=== PATIENT | female | born 1960 | race African-American/Black ===

== ENCOUNTER 2017-01-24 21:28 | Emergency (ER) | payer OTHER ==
[~2017-01-24] VITALS: Ht 162.6 cm; Wt 95.5 kg
[~2017-01-24 21:28] MED LIST: ALBU8.5H3 INH; ASPI-664 PO; ATOR20TA65 PO; AZIT250T6 PO; DOCU-144 PO; FAMO40TA52 PO; GABA100C14 PO; HYDR-3671 PO; INSU100I27 SQ; LINA5TAB PO; METF850T PO; METO-448 GTB; NOVO3I SC; OLAN2.5T4 PO; SENN-53 PO; SILD20TA PO; SPIR25TA PO
[2017-01-24 21:41] VITALS: Ht 162.6 cm; Wt 95.5 kg
--- NOTE | 2017-01-24 22:45 | ERD ---
ER Documentation Chief Complaint Date/Time DATE: 01/24/17 TIME: 22:37 Chief Complaint swelling right lower leg x 3 days. denies injury. also c/o cough/headache HPI Patient is a 56-year-old female with past medical history of hypertension, DM type II, CHF, COPD, chronic headaches who presents emergency department with concerns to an abscess to her right lower leg. Patient states that this occurred 3 days ago. Patient reports increasing swelling and redness to the left lower leg. Patient does report a "small bump." Patient is unsure if she was bit by anything. Patient denies any fevers, chills, nausea, vomiting or loss consciousness. Patient also states that she is having a headache. Patient states the pain has been present for the last month. She states the pain is intermittent in nature. Patient denies sudden onset. Patient states that her current headache does feel like previous headaches in the past. Patient has been taking Tylenol 3 which does alleviate her pain. Patient denies any recent falls or trauma. Patient denies any new blurry vision, loss of consciousness. She does have a history of chronic eye problems she is seeing a retinal specialist for. Patient denies any nausea, vomiting, dizziness. Patient also complaining of lower back pain. Patient denies any falls or recent trauma. Patient denies any saddle anesthesia, urinary incontinence, stool incontinence, night pain. Patient denies any numbness or tingling down her leg. Patient denies any radiation of the pain. Patient does not recall her last tetanus vaccination. ROS All systems reviewed and are negative except as per history of present illness. Medications Home Meds Active Scripts Cephalexin* (Keflex*) 500 Mg Capsule, 500 MG PO QID for 7 Days, CAP Prov:MARKELL DENT PA-C 01/25/17 Sulfamethoxazole-Trimethoprim* (Bactrim* DS) 800-160 Mg Tab, 1 TAB PO BID for 7 Days, TAB Prov:MARKELL DENT PA-C 01/25/17 Hydrocodone/Acetaminophen (Okarche 5-325 Tablet) 1 Each Tablet, 1 TAB PO Q6H Y for PAIN, #7 TAB Prov:MARKELL DENT PA-C 01/25/17 Azithromycin* (Azithromycin*) 250 Mg Tablet, 500 MG PO ONCE, #1 TAB Prov:MARCIA MARISCAL MD 09/16/16 Azithromycin* (Azithromycin*) 250 Mg Tablet, 250 MG PO DAILY, #4 TAB Prov:MARCIA MARISCAL MD 09/16/16 Albuterol Sulfate* (Proair HFA*) 8.5 Gm Hfa.aer.ad, 2 PUFF INH Q4, #1 INHALER Prov:MARCIA MARISCAL MD 09/16/16 Metoprolol Tartrate* (Lopressor*) 25 Mg Tab, 25 MG GTB BID for 30 Days, TAB Prov:CALZADA,LANDON V. STEAM FINISHER 07/09/16 Sennosides* (Senna Lax*) 8.6 Mg Tablet, 1 TAB PO BID Y for CONSTIPATION for 30 Days, TAB Prov:CALZADA,LANDON V. STE[employer] FINISHER 07/09/16 Sildenafil Citrate* (Sildenafil Citrate*) 20 Mg Tablet, 20 MG PO BID for 30 Days , TAB Prov:CALZADA,LANDON V. STE[employer] FINISHER 07/09/16 Olanzapine* (Zyprexa*) 2.5 Mg Tablet, 2.5 MG PO QAM for 30 Days, TAB Prov:CALZADA,LANDON V. STEAM FINISHER 07/09/16 Olanzapine* (Zyprexa*) 2.5 Mg Tablet, 7.5 MG PO QPM for 30 Days, TAB Prov:CALZADA,LANDON V. STEAM FINISHER 07/09/16 Linagliptin (TRADJENTA) 5 Mg Tablet, 5 MG PO DAILY for 30 Days, TAB Prov:CALZADA,LANDON V. STE[employer] FINISHER 07/09/16 Insulin Aspart* (Novolog Insulin Pen*) 100 Unit/Ml Soln, 14 UNIT SC WITH MEALS for 30 Days Prov:CALZADA,LANDON V. STEAM FINISHER 07/09/16 Atorvastatin Calcium (Atorvastatin Calcium) 20 Mg Tablet, 20 MG PO HS for 30 Days, TAB Prov:CALZADA,LANDON V. STE[employer] FINISHER 07/09/16 Docusate Sodium* (Colace*) 100 Mg Cap, 100 MG PO BID for 30 Days, CAP Prov:HERBIE PATEL 12/02/15 Reported Medications Gabapentin* (Gabapentin*) 100 Mg Capsule, 100 MG PO QHS, #90 CAP 09/16/16 Metformin Hcl* (Metformin Hcl*) 850 Mg Tablet, 850 MG PO WITH BREAKFAST DINNE, # 30 TAB 11/29/16 Insulin Detemir (Levemir Flextouch) 100 Unit/1 Ml Insuln.pen, 40 UNIT SQ QHS 09/16/16 Spironolactone* (Aldactone*) 25 Mg Tablet, 25 MG PO DAILY, #30 TAB 05/26/16 Hydralazine Hcl* (Hydralazine Hcl*) 25 Mg Tab, 25 MG PO TID Y for ELEVATED BLOOD PRESSURE, #60 TAB 05/26/16 Famotidine* (Famotidine*) 40 Mg Tablet, 40 MG PO DAILY, #60 TAB 05/26/16 Aspirin* (Aspirin* (EC)) 81 Mg Tablet.dr, 81 MG PO DAILY, TAB 11/28/15 Allergies Allergies: Coded Allergies: No Known Drug Allergies (Verified Allergy, Unknown, 01/24/17) PMhx/Soc History of Surgery: Yes (s/p femoral hemodialysis catheter placement) Anesthesia Reaction: No Hx Neurological Disorder: Yes (Encephalopathy) Hx Respiratory Disorders: Yes (ASTHMA,COPD) Hx Cardiac Disorders: Yes (HTN,CHF) Hx Psychiatric Problems: Yes (Depression) Hx Miscellaneous Medical Probl: Yes (asthma, COPD, DM2, CHF moderate systolic dysfunction, HTN, smoker) Hx Alcohol Use: No Hx Substance Use: Yes (Patient quit smoking marijuana 7 years ago.) Hx Tobacco Use: Yes Smoking Status: Current every day smoker Physical Exam Vitals Vital Signs Date Time Temp Pulse Resp B/P Pulse Ox O2 Delivery O2 Flow Rate FiO2 01/25/17 00:55 98.2 99 18 120/85 94 Room Air 01/24/17 21:41 97.7 123 20 109/73 95 Physical Exam GENERAL: Well-developed, well-nourished female. Appears in no acute distress. Speaking in full sentences HEAD: Normocephalic, atraumatic. No deformities or ecchymosis. Nontender to palpation of bilateral temporal region EYE: Pupils equal, round, and reactive to light. EOMs intact. No conjunctival erythema. No eye discharge. ENT: External ear without any masses or tenderness. Auditory canals clear bilaterally. TM visualized bilaterally, non-erythematous, non-bulging. Nasal mucosa pink with no discharge. Oropharynx is pink without any tonsillar erythema or exudates. No uvula deviation. No kissing tonsils. NECK: Supple. No meningismus. Normal ROM of the neck. LUNG: Clear to auscultation bilaterally. No rhonchi, wheezing, rales or coarse breath sounds. HEART: Regular rate and rhythm. No murmurs, rubs or gallops. BACK: No midline tenderness. Tender to palpation of bilateral paraspinalis muscles of the lumbar region. EXTREMITIES: Equal pulses bilaterally. No peripheral clubbing, cyanosis or edema. No bilateral leg swelling. No pitting edema. NEUROLOGIC: Alert and oriented x3, cooperative. Mood and affect appropriate to situation. Cranial nerves II through XII are grossly intact. Normal speech. Motor exam: 5/5 strength in upper and lower extremities. Sensory exam: Sensation intact to light touch on all four extremities. Cerebellar function exam: Rapid alternating movements intact. No dysmetria on [id number] test. Steady gait. No pronator drift. Negative sign. Negative Kernig sign. SKIN: Normal color. Warm and dry. No rashes or lesions. 2 cm circular abscess noted to the patient's medial aspect of her right lower leg. Positive fluctuance. Minimal warmth and swelling. Results 24 hrs Current Medications Medications (Trade) Dose Ordered Sig/Angy Route PRN Reason Start Time Stop Time Status Last Admin Dose Admin Lidocaine (Xylocaine 1% (Mdv) 20 ml) 20 ml ONCE ONCE SC 01/24/17 23:00 01/24/17 23:01 DC Acetaminophen/ Hydrocodone Bitart (Okarche (5/325)) 1 tab ONCE ONCE PO 01/24/17 23:00 01/24/17 23:01 DC 01/24/17 22:38 Diphtheria/ Tetanus/Acell Pertussis (Adacel) 0.5 ml ONCE ONCE IM* 01/25/17 00:30 01/25/17 00:31 DC 01/25/17 00:45 Procedures/MDM ED COURSE: The patient was stable throughout ED course. I kept the patient and/or family informed of laboratory and diagnostic imaging results throughout the ED course. DIAGNOSTIC IMAGING: Read by radiologist. DIAGNOSTIC IMAGING REPORT Patient: JOSE MIGUEL BECKETT : 1960 Age: 56 Sex: F MR #: [id number] DOS: 01/24/17 2317 Ordering MD: MARKELL DENT PA-C Location: [facility] Room/Bed: PROCEDURE: CT brain without contrast CLINICAL INDICATION: Headaches for 1 month TECHNIQUE: A CT of the brain was performed utilizing axial sections from the skull base through the vertex without contrast. Sagittal and coronal images were also reformatted. The exam CTDIvol = 44.77 mGy and DLP = 720.23 mGy-cm. COMPARISON: CT 06/09/2016 FINDINGS: No acute intracranial hemorrhage is identified. There is no mass effect or midline shift. No extra-axial fluid collection is seen. The ventricles and sulci are slightly prominent for the patient's provided age of 56 years but unchanged suggesting mild tissue loss. The density of the brain is within normal limits. Johnson-white differentiation is preserved. No density alteration within the mignon or cerebellum is demonstrated. Atherosclerotic calcification of the cavernous internal carotid arteries is noted The osseous structures are unremarkable. Small area of scarring within the right parietal scalp is similar to the previous exam The mastoid air cells and visualized paranasal sinuses are clear. RPTAT:HJJR IMPRESSION: 1. No evidence of acute intracranial abnormality or finding to explain the patient's provided history. 2. Mildly advanced cerebral tissue loss for the patient's age is stable compared to 06/09/2016. 3. Small area of scalp scarring in the right parietal convexity is unchanged. 4. Stable atherosclerotic calcification of the cavernous internal carotid arteries. Physician Edmar Date Time Electronically viewed and signed by Physician Edmar on 01/25/2017 00:02 JR/ CC: MARKELL DENT PA-C MEDICATIONS GIVEN: Okarche, Tdap Patient tolerated medication well with no adverse reactions. Patient reported improvement in pain. INCISION AND DRAINAGE: The patient was verbally consented prior to procedure. Patient was explained the risks, benefits and alternatives to this procedure. Location: Right lower leg Abscess size: 2 cm Anesthesia: local 1% lidocaine, 5 cc Preparation: The area was prepped in a sterile fashion using betadine x3 cleanses. A sterile field was prepared. Technique: A sterile 11 blade scalpel was used to make a 1 cm linear incision into the abscess. Procedure: A midline abscess incision was made using a sterile scalpel in a linear fashion. Purulent material was expressed with direct pressure. Blunt probing was used to break up loculations. Bleeding was minimal. Packing:none The patient tolerated the procedure well with no complications. The wound was dressed in sterile gauze. The patient was neurovascularly intact post- procedure. Post-procedural wound care was discussed with the patient. MEDICAL DECISION MAKING: This is a 56-year-old female who presents with concerns of an abscess on her right leg, headaches and back pain. Patient states that the abscess started approximately 3 days ago. Patient states that she has had her current headache for the last month. She states that her headache episodic in nature. Patient denied sudden onset. She does state that the pain is similar to headaches in the past. Patient also reported back pain. Patient denied any loss of consciousness, saddle anesthesia, urinary incontinence, stool incontinence or night pain. Vital signs were reviewed. Patient was afebrile. Patient is not hypoxic. Full neurological exam was normal. CT imaging of the brain showed no evidence of acute intracranial abnormality or finding to explain the patient's provided history. Mildly advanced cerebral tissue loss for the patient's age is stable compared to 06/09/2016. Small area of scalp scarring in the right parietal convexity is unchanged. Stable atherosclerotic calcification of the cavernous internal carotid arteries. Given these findings, the patient's presentation is most consistent with headaches, lower back pain, and abscess. Low suspicion for intracranial hemorrhage, meningitis, encephalitis, CO poisoning, temporal arteritis, benign intracranial hypertension, intracranial mass, sinusitis. Low suspicion for cauda equine syndrome, spinal fractures, epidural abscess, spinal metastases, osteomyelitis, sciatica, lumbar strain, muscle spasm, pyelonephritis or nephrolithiasis. Low suspicion for deep infection. Given patient's history of DM, I will treat the patient with a course of antibiotics for her abscess. PRESCRIPTIONS: Keflex, Bactrim, Okarche DISCHARGE: At this time, patient is stable for discharge and outpatient management. I have encouraged the patient to hydrate well. I have instructed the patient to follow- up with his/her primary care physician in 1-2 days. If symptoms persist, patient may need to see a specialist for further examinations and testing. I have instructed the patient to promptly return to the ER at any time for any new or worsening symptoms including increased increased pain, visual changes, weakness, LOC, worsening redness, swelling, warmth, fever, chills. The patient and/or family expressed understanding of and agreement with this plan. All questions were answered. Home care instructions were provided. Departure Diagnosis: Primary Impression: Abscess Additional Impressions: Headache Headache type: unspecified Headache chronicity pattern: chronic headache Intractability: not intractable Qualified Code: R51 - Chronic nonintractable headache, unspecified headache type Back pain Back pain location: back pain in unspecified location Chronicity: unspecified Back pain laterality: unspecified Qualified Code: M54.9 - Back pain, unspecified back location, unspecified back pain laterality, unspecified chronicity Encounter for incision and drainage procedure Condition: Stable Patient Instructions: Abscess, Incision And Drainage, Headache, Unspecified Referrals: [facility] YOU HAVE RECEIVED A MEDICAL SCREENING EXAM AND THE RESULTS INDICATE THAT YOU DO NOT HAVE A CONDITION THAT REQUIRES URGENT TREATMENT IN THE EMERGENCY DEPARTMENT. FURTHER EVALUATION AND TREATMENT OF YOUR CONDITION CAN WAIT UNTIL YOU ARE SEEN IN YOUR DOCTORS OFFICE WITHIN THE NEXT 1-2 DAYS. IT IS YOUR RESPONSIBILITY TO MAKE AN APPOINTMENT FOR FOLOW-UP CARE. IF YOU HAVE A PRIMARY DOCTOR --you should call your primary doctor and schedule an appointment IF YOU DO NOT HAVE A PRIMARY DOCTOR YOU CAN CALL OUR PHYSICIAN REFERRAL HOTLINE AT IF YOU CAN NOT AFFORD TO SEE A PHYSICIAN YOU CAN CHOSE FROM THE FOLLOWING [facility] [address] [facility]. [facility] [address] [facility]. [facility] [address] [facility] [address] [facility] [address] [facility]. [facility]. [address] [facility] YOU HAVE RECEIVED A MEDICAL SCREENING EXAM AND THE RESULTS INDICATE THAT YOU DO NOT HAVE A CONDITION THAT REQUIRES URGENT TREATMENT IN THE EMERGENCY DEPARTMENT. FURTHER EVALUATION AND TREATMENT OF YOUR CONDITION CAN WAIT UNTIL YOU ARE SEEN IN YOUR DOCTORS OFFICE WITHIN THE NEXT 1-2 DAYS. IT IS YOUR RESPONSIBILITY TO MAKE AN APPOINTMENT FOR FOLOW-UP CARE. IF YOU HAVE A PRIMARY DOCTOR --you should call your primary doctor and schedule and appointment IF YOU DO NOT HAVE A PRIMARY DOCTOR YOU CAN CALL OUR PHYSICIAN REFERRAL HOTLINE AT . IF YOU CAN NOT AFFORD TO SEE A PHYSICIAN YOU CAN CHOSE FROM THE FOLLOWING [facility] INSTITUTIONS: [facility] [address] [place] [address] [facility] [address] [place] [address] [facility] [address] [place] [address] Additional Instructions: Call your primary care doctor TOMORROW for an appointment during the next 1-2 days.See the doctor sooner or return here if your condition worsens before your appointment time. MARKELL DENT PA-C Jan 24, 2017 22:45
[2017-01-24] MEDS ORDERED: LIDOCAINE 1% (MDV) 20 ML INJ SC ONE (23:00)
[2017-01-24] MEDS ORDERED: HYDROCODONE/APAP (5/325) TAB PO ONE (23:00)
--- NOTE | 2017-01-25 00:02 | RADRPT ---
PROCEDURE: CT brain without contrast CLINICAL INDICATION: Headaches for 1 month TECHNIQUE: A CT of the brain was performed utilizing axial sections from the skull base through th e vertex without contrast. Sagittal and coronal images were also reformatted. The exam CTDIvol = 44. 77 mGy and DLP = 720.23 mGy-cm. COMPARISON: CT 06/09/2016 FINDINGS: No acute intracranial hemorrhage is identified. There is no mass effect or midline shift. No extra -axial fluid collection is seen. The ventricles and sulci are slightly prominent for the patient's provided age of 56 years but unchanged suggesting mild tissue loss. The density of the brain is wit hin normal limits. Johnson-white differentiation is preserved. No density alteration within the mignon or cerebellum is demonstrated. Atherosclerotic calcification of the cavernous internal carotid humphrey jostin is noted The osseous structures are unremarkable. Small area of scarring within the right parietal scalp is similar to the previous exam The mastoid air cells and visualized paranasal sinuses are clear. RPTAT:HJJR IMPRESSION: 1. No evidence of acute intracranial abnormality or finding to explain the patient's provided histo ry. 2. Mildly advanced cerebral tissue loss for the patient's age is stable compared to 06/09/2016. 3. Small area of scalp scarring in the right parietal convexity is unchanged. 4. Stable atherosclerotic calcification of the cavernous internal carotid arteries. Physician Edmar Date Time Electronically viewed and signed by Physician Edmar on 01/25/2017 00:02 /
[2017-01-25] MEDS ORDERED: HYDR-906 PO (00:18)
[2017-01-25] MEDS ORDERED: CEPH-443 PO (00:19)
[2017-01-25] MEDS ORDERED: BACTDS PO (00:19)
[2017-01-25] MEDS ORDERED: DIPHTH/TET/ACEL PERTUSS (ADULT) 0.5 ML VIAL IM* ONE (00:30)
[2017-01-25 00:55] VITALS: BP 120/85; PULSE 99; RESP 18; TEMP 98.2
== END 2017-01-25 00:55 | disposition home or self-care (01) ==
LOC: FTE 21:28
DX: L02.415 Cutaneous abscess of right lower limb (principal); R51 Headache; M54.5 Low back pain; J45.909 Unspecified asthma, uncomplicated; J44.9 Chronic obstructive pulmonary disease, unspecified; I10 Essential (primary) hypertension; I50.9 Heart failure, unspecified; E11.9 Type 2 diabetes mellitus without complications; F17.210 Nicotine dependence, cigarettes, uncomplicated; Z79.4 Long term (current) use of insulin; Z79.84 Long term (current) use of oral hypoglycemic drugs; Z79.82 Long term (current) use of aspirin; Z23 Encounter for immunization
CPT/HCPCS: 10061; 70450; 90715; Z7610; 90471